=== PATIENT | female | born 1950 | race Caucasian/White ===

== ENCOUNTER 2022-11-16 13:59 | Emergency (ER) | payer MEDICARE ==
[~2022-11-16] VITALS: Ht 167.6 cm; Wt 72.6 kg
== END 2022-11-16 18:07 | disposition home or self-care (01) ==
LOC: ED 13:59
DX: H46.9 Unspecified optic neuritis (principal); Z88.5 Allergy status to narcotic agent
CPT/HCPCS: 36415; 85651; 86140; 99283